=== PATIENT | female | born 1950 | race Caucasian/White ===

== ENCOUNTER 2022-07-27 19:30 | Outpatient (CLI) | payer MEDICARE, BC | END 2022-07-27 19:31 | disposition home or self-care (01) | LOC: SLEEPLAB 19:30 | PROVIDERS: ATTEND Internal Medicine Critical Care Medicine | DX: G47.33 Obstructive sleep apnea (adult) (pediatric) (principal); G47.31 Primary central sleep apnea; R53.83 Other fatigue | CPT/HCPCS: 95811 ==

== ENCOUNTER 2022-08-07 19:30 | Outpatient (CLI) | payer MEDICARE, BC | END 2022-08-07 19:31 | disposition home or self-care (01) | LOC: SLEEPLAB 19:30 | PROVIDERS: ATTEND Internal Medicine Critical Care Medicine | DX: G47.33 Obstructive sleep apnea (adult) (pediatric) (principal); R53.83 Other fatigue | CPT/HCPCS: 95811 ==